=== PATIENT | male | born 1955 | race Caucasian/White ===

== ENCOUNTER 2025-02-15 07:55 | Outpatient (CLI) | payer MEDICARE ==
[2025-02-15 08:46] LABS: Hematocrit 46.4 % (38.8-50.0); Hemoglobin 15.3 g/dL (13.5-17.5); Mean Corpuscular Hemoglobin 27.2 pg (27.0-33.0); Mean Corpuscular Volume 82.6 fL (81.2-95.1); Platelet Count 219 10x3/uL (150-450); Red Blood Cell (RBC) Count 5.62 10x6/uL (4.32-5.72); White Blood Cell (WBC) Count 6.29 10x3/uL (3.5-10.5)
[2025-02-15 08:56] LABS: Anion Gap 14 mmol/L (10-20); BUN (Urea Nitrogen) 16 mg/dL (8.4-25.7); Calc. Creatinine Clearance 0 mL/min (70-130); Calcium 9.0 mg/dL (7.8-10.44); Carbon Dioxide 22 mmol/L (23-31); Chloride 110 mmol/L (98-107); Glucose 106 mg/dL (80-115); Potassium 4.0 mmol/L (3.5-5.1); Sodium 142 mmol/L (136-145)
== END 2025-02-15 07:56 | disposition home or self-care (01) ==
LOC: CSHLAB 07:55
PROVIDERS: ATTEND Surgery
DX: Z01.818 Encounter for other preprocedural examination (principal); K43.6 Other and unspecified ventral hernia with obstruction, without gangrene
CPT/HCPCS: 80048; 80053; 80061; 85025; 85027; 93005; G0103; 36415; 93010

== ENCOUNTER 2025-02-17 05:51 | Day surgery (SDC) | payer MEDICARE ==
[2025-02-15 08:22] VITALS: BMI 30.6
[2025-02-17] MEDS ORDERED: Bupivacaine HCl 0.5%/Epinephrine 1:200,000/PF 30 ml Vial ONE (07:00)
[2025-02-17] MEDS ORDERED: PROPOFOL 20 ML ONE (07:03)
[2025-02-17] MEDS ORDERED: Rocuronium Bromide 10 MG/ML (10ML VIAL) ONE (07:04)
[2025-02-17] MEDS ORDERED: Lidocaine 1% PF 5 ML VIAL ONE (07:04)
[2025-02-17] MEDS ORDERED: CEFAZOLIN 2 GM VIAL ONE (07:17)
[2025-02-17] MEDS ORDERED: SUCCINYLCHOLINE/SOD CL,ISO/PF 200 MG/10 ML SYRINGE FS ONE (07:35)
[2025-02-17] MEDS ORDERED: Ondansetron PF 4 MG/2 ML Vial ONE ×2 (08:47→09:47)
[2025-02-17] MEDS ORDERED: SUGAMMADEX SODIUM 200 MG/2 ML VIAL ONE (08:48)
[2025-02-17] MEDS ORDERED: HYDROcodone/Acetaminophen 5/325 mg Tablet ONE (12:11)
== END 2025-02-17 12:15 | disposition home or self-care (01) ==
LOC: CSHSDC 05:51
PROVIDERS: ATTEND Surgery
PROC: 0WUF4JZ Supplement Abdominal Wall with Synthetic Substitute, Percutaneous Endoscopic Approach (ICD-10-PCS; principal; 2025-02-17)
DX: K43.6 Other and unspecified ventral hernia with obstruction, without gangrene (principal); I10 Essential (primary) hypertension; Z86.73 Personal history of transient ischemic attack (TIA), and cerebral infarction without residual deficits; Z87.891 Personal history of nicotine dependence; Z90.49 Acquired absence of other specified parts of digestive tract; Z79.82 Long term (current) use of aspirin
CPT/HCPCS: 49594; J1100; J2704; S2900